=== PATIENT | male | born 1965 | race Caucasian/White ===

== ENCOUNTER 2019-08-02 09:11 | Outpatient (CLI) | payer BC, SELFPAY ==
--- NOTE | 2019-08-04 15:11 | WPDHOLTEREM ---
Holter/Event Monitor Holter/Event Monitor Date of procedure: 08/04/19 Procedure Type: 48 hour Holter monitor Diagnosis: syncope and collapse Indications: syncope and collapse Image/Tracing Quality: this is a 48 hour Holter monitor in which the underlying rhythm was sinus with an average heart rate of 82 beats per minute minimum 48 beats per minute occurring at 5:48 a.m. and a maximum 148 beats per minute occurring at 6:15 p.m.. There were 1374 ventricular ectopic beats (0.6% burden) which there was 1 5 beat run of wide complex tachycardia probable nonsustained ventricular tachycardia although cannot exclude aberrantly conducted SVT. Majority of ventricular ectopy was in the form of isolated premature ventricular contractions with rare ventricular bigeminy and ventricular couplets. rare supraventricular ectopy was noted throughout the study with a total 71 beats consisting of 1 7 beat run of SVT at 182 beats per minute occurring at 2:17 p.m., 64 isolated premature atrial contractions and no atrial fibrillation and/or atrial flutter noted. There were no prolonged pauses or high-grade AV blocks identified. The longest RR interval was 1.5 seconds occurring at 6:04 a.m.. MI and QRS duration were within normal limits throughout the study. There were no symptoms returned in conjunction with this study. Finding: Occasional PVCs and one 5 beat run of nonsustained ventricular tachycardia versus aberrantly conducted SVT without reported symptoms. One 7 beat run of SVT. No atrial fibrillation/flutter or prolonged pauses/high grade blocks. No symptoms returned in conjunction with this study. Clinical correlation advised.
== END 2019-08-02 09:12 | disposition home or self-care (01) ==
PROVIDERS: PCP Nurse Practitioner Adult Health; Visit Provider Nurse Practitioner Adult Health
DX: R55 Syncope and collapse (principal)
CPT/HCPCS: 93225; 93226

== ENCOUNTER → 2019-12-13 08:04 | Outpatient (CLI) | payer BC, SELFPAY ==
--- NOTE | ~2019-12-13 | MR_ITS ---
EXAMINATION: MR shoulder RT wo con DATE: 12/13/2019 08:42 INDICATION: Right shoulder pain TECHNIQUE: Magnetic resonance imaging (MRI) of the right shoulder was performed without intravenous c ontrast. Sequences included axial PD-weighted FS FSE, coronal oblique PD-weighted FS FSE, coronal obl ique T2-weighted FS FSE, sagittal PD-weighted FS FSE, and sagittal T1-weighted SE. COMPARISON: None. FINDINGS: Coracoacromial arch: The acromion undersurface is curved in morphology (type II) with both anterior and lateral downslopin g. The coracoacromial ligament is normal. Minimal acromioclavicular osteoarthritis. Rotator cuff: Moderate supraspinatus and mild infraspinatus tendinopathy. Any fluid collection extending along a sm all mild intrasubstance tear involving approximately one third of the tendon thickness and extending 7 mm AP along the middle facet footplate of the distal infraspinatus tendon. Subscapularis tendinopat hy without discrete tear. The teres minor tendon is normal. Normal rotator cuff muscle bulk and signa l. Biceps tendon, glenoid labrum and glenohumeral cartilage: Long head of the biceps tendon is normal. Ill-defined linear labral tear involving the 1:00-10:30 pos ition of the superior glenoid labrum. Normal sublabral foramen at the 1:00-2:00 position of the gleno id labrum. There is more amorphous increased signal at the 3:00-5:00 position of the anteroinferior g lenoid labrum suggesting more irregular degenerative tearing. There is partial thickness cartilage lo ss with smooth chondral surface along the cephalad half of the glenoid and along the inferomedial asp ect of the humeral head. Tiny marginal osteophytes are seen along the anteroinferior glenoid. Fluid: Physiologic amount of fluid in the glenohumeral joint and biceps tendon sheath. No loose osteochondra l bodies. Mild increased fluid signal in the subacromial/subdeltoid bursa consistent with mild bursit is. Bones: Normal marrow signal with no edema, fracture or abnormal marrow replacing process. IMPRESSION: 1. Mild to moderate rotator cuff tendinopathy with small mild intrasubstance tear at the middle facet footplate of the infraspinatus tendon. 2. Mild glenohumeral osteoarthritis with labral tears at the superior and anteroinferior glenoid labr um. 3. Mild subacromial/subdeltoid bursitis. Reviewed, dictated and finalized at location A. IMPRESSION: 1. Mild to moderate rotator cuff tendinopathy with small mild intrasubstance te ar at the middle facet footplate of the infraspinatus tendon. 2. Mild glenohumeral osteoarthritis with labral tears at the superior and anter oinferior glenoid labrum. 3. Mild subacromial/subdeltoid bursitis.
== END ==
DX: M19.011 Primary osteoarthritis, right shoulder (principal); M75.51 Bursitis of right shoulder
CPT/HCPCS: 73221

== ENCOUNTER → 2019-12-27 08:45 | Outpatient (CLI) | payer BC, SELFPAY ==
--- NOTE | ~2019-12-27 | MR_ITS ---
EXAMINATION: MR shoulder LT wo con DATE: 12/27/2019 09:27 INDICATION: Rotator cuff tear. Anterior left shoulder pain. TECHNIQUE: Magnetic resonance imaging (MRI) of the left shoulder was performed without intravenous co ntrast. Sequences included axial PD-weighted FS FSE, coronal oblique PD-weighted FS FSE, coronal obli que T2-weighted FS FSE, sagittal PD-weighted FS FSE, and sagittal T1-weighted SE. COMPARISON: None. FINDINGS: Coracoacromial arch: The acromion undersurface is curved in morphology (type II) with anterior and lateral downsloping. Th e coracoacromial ligament is normal. Mild acromioclavicular osteoarthritis. Rotator cuff: Supraspinatus and infraspinatus tendinopathy. There is a small intrasubstance tear extending for appr oximately 1 cm AP along the footplate of the conjoined portion of the supraspinatus and infraspinatus tendons as evidenced by thinning of the tendon with subtle concavity to the bursal surface and with underlying tiny focus of fluid signal along the footplate. The tear appears to involve less no greate r than one third of the tendon thickness, closer to the bursal side of the tendon. The teres minor te ndon is normal. Mild subscapularis tendinopathy with linear fluid signal extending along longitudinal split tear planes in the distal most 1.5 cm the tendon but without a measurable tear defect or retra cted tear margin. Normal rotator cuff muscle bulk and signal. Biceps tendon, glenoid labrum and glenohumeral cartilage: Long head of the biceps tendon is normal. Glenoid labrum is normal. Glenohumeral cartilage is normal. Fluid: Physiologic amount of fluid in the glenohumeral joint and biceps tendon sheath. No loose osteochondra l bodies. Slight increase in fluid signal in the subacromial/subdeltoid bursa consistent with minimal bursitis. Bones: Normal marrow signal with no edema, fracture or abnormal marrow replacing process. Mild cystic change at the cephalad aspect of the lesser tuberosity. IMPRESSION: 1. Mild supraspinatus and infraspinatus tendinopathy with small mild intrasubstance tear at the inser tion of the conjoined portion of the tendon. Line 2. Mild subscapularis tendinopathy with some longitudinal split tearing along the distalmost fibers b ut without a measurable tear defect or torn retracted tear margin. Reviewed, dictated and finalized at location A. IMPRESSION: 1. Mild supraspinatus and infraspinatus tendinopathy with small mild intrasubst ance tear at the insertion of the conjoined portion of the tendon. Line 2. Mild subscapularis tendinopathy with some longitudinal split tearing along t he distalmost fibers but without a measurable tear defect or torn retracted tea r margin.
== END ==
DX: M25.512 Pain in left shoulder (principal)
CPT/HCPCS: 73221

== ENCOUNTER 2021-04-19 09:25 | Outpatient (CLI) | payer BC, SELFPAY ==
--- NOTE | ~2021-04-19 | MR_ITS ---
EXAMINATION: MR lumbar spine wo con EXAM DATE: 04/19/2021 10:31 INDICATION: Lumbar radiculopathy. Left leg pain. Low back pain. TECHNIQUE: Multi-sequential, multiplanar MR images of the lumbar spine were obtained without contrast . Sagittal T1, T2, T2 fat saturation images. Axial T2 weighted images. Comparison is made to prior examination from 2016. FINDINGS: Mild diffuse thoracolumbar disc disease. The conus medullaris terminates at the T12-L1 leve l and has normal signal intensity and morphology. The vertebral bodies are aligned in the AP dimensi on. There are no suspicious marrow signal abnormalities. Paraspinal soft tissue is unremarkable. Level by level evaluation: T12-L1: There is a mild diffuse disc bulge. Facet arthropathy: Mild. Neural foraminal stenosis: No stenosis. Central canal stenosis: No stenosis. L1-L2: There is a mild diffuse disc bulge. Facet arthropathy: Moderate. Neural foraminal stenosis: Mild to moderate left, mild right. Central canal stenosis: Mild. L2-L3: There is a mild to moderate diffuse disc bulge. Facet arthropathy: Moderate. Neural foraminal stenosis: Moderate left, mild right. Central canal stenosis: Mild. L3-L4: There is a moderate diffuse disc bulge. Far left annular fissure. Facet arthropathy: Moderate. Neural foraminal stenosis: Moderate left, mild to moderate right. Central canal stenosis: Mild. L4-L5: There is a moderate diffuse disc bulge. Facet arthropathy: Moderate. Neural foraminal stenosis: Moderate left, mild to moderate right. Central canal stenosis: Moderate overall, and moderate left lateral recess stenosis. L5-S1: There is a mild diffuse disc bulge. Facet arthropathy: Mild to moderate. Neural foraminal stenosis: Mild bilateral. Central canal stenosis: No stenosis. Mild progression spondylosis compared to 2016. IMPRESSION: Moderate mid lumbar left neural foraminal stenosis and L4-5 Central canal, lateral recess stenosis. Reviewed, dictated and finalized at location A. [facility]
== END 2021-04-19 09:26 | disposition home or self-care (01) ==
LOC: ANHIMG 09:30
PROVIDERS: PCP Nurse Practitioner Adult Health; Visit Provider Nurse Practitioner Family
DX: M54.16 Radiculopathy, lumbar region (principal); M48.061 Spinal stenosis, lumbar region without neurogenic claudication
CPT/HCPCS: 72148

== ENCOUNTER 2022-12-18 07:52 | Outpatient (CLI) | payer BC, SELFPAY ==
[2022-12-18 19:57] LABS: Alanine Aminotransferase 44 U/L (6-50); Albumin Level 4.4 g/dL (3.5-5.1); Alkaline Phosphatase 87 U/L (38-126); Anion Gap 6 mmol/L (8-16); Aspartate Amino Transferase 83 U/L (17-59); Bilirubin,Total 1.7 mg/dL (0.2-1.3); Blood Urea Nitrogen 15 mg/dL (9-20); Calcium 9.1 mg/dL (8.4-10.2); Carbon Dioxide 31 mmol/L (22-30); Chloride 105 mmol/L (98-107); Cholesterol 179 mg/dL (0-200); Estimated Glomerular Filt Rate > 60; Glucose 82 mg/dL (65-110); HDL Direct 33 mg/dL; Potassium 4.6 mmol/L (3.4-5.0); Sodium 142 mmol/L (137-145); Triglycerides 92 mg/dL (<150)
[2022-12-18 20:01] LABS: Hematocrit 45.3 % (42.0-52.0); Hemoglobin 14.7 g/dL (14.0-18.0); Mean Corpuscular HGB Conc 32.5 g/dl (32-36); Mean Corpuscular Hemoglobin 30.8 pg (26-34); Mean Corpuscular Volume 94.8 fl (80-100); Platelet Count Result 299 k/mm3 (150-375); Red Blood Count 4.78 M/mm3 (4.6-6.20); Red Cell Distribution Width 13.1 % (11.5-14.5); White Blood Count 7.6 K/mm3 (4.5-10.0)
[2022-12-18 20:08] LABS: LDL Cholesterol Direct 115 mg/dL
[2022-12-18 20:25] LABS: Hemoglobin A1C 5.2 % (<5.7); Prostate Specific Antigen 0.8 ng/mL (< OR = 4.0)
== END 2022-12-18 07:53 | disposition home or self-care (01) ==
LOC: ANHBWCLAB 07:54
PROVIDERS: PCP Nurse Practitioner Adult Health; Visit Provider Nurse Practitioner Adult Health
DX: Z13.9 Encounter for screening, unspecified (principal); Z12.5 Encounter for screening for malignant neoplasm of prostate
CPT/HCPCS: 36415; 80053; 80061; 83036; 84153; 84443; 85027; G0103

== ENCOUNTER → 2023-01-12 07:45 | Outpatient (CLI) | payer BC, SELFPAY ==
--- NOTE | ~2023-01-12 | US_ITS ---
US abdomen limited INDICATION: Elevated bilirubin PROCEDURE: Realtime right upper abdominal ultrasound. COMPARISON: No prior studies for comparison. FINDINGS: The pancreas is normal without focal mass or pancreatic ductal dilation. Liver echotexture is normal without focal mass or intrahepatic biliary dilatation. There is normal directional flow i n the portal vein. The gallbladder is normal without stones, gallbladder wall thickening or pericholecystic fluid. Comm on bile duct measures for mm. No sonographic Meyer's sign. IMPRESSION: 1: Normal limited abdominal ultrasound. Reviewed, dictated and finalized at location B.
== END ==
PROVIDERS: PCP Nurse Practitioner Adult Health; Visit Provider Nurse Practitioner Adult Health
DX: R74.8 Abnormal levels of other serum enzymes (principal)
CPT/HCPCS: 76705